=== PATIENT | female | born 1960 | race Caucasian/White ===

== ENCOUNTER 2019-05-09 07:20 | Day surgery (SDC) | payer BC ==
[2019-05-09] MEDS ORDERED: Midazolam 1 MG/ML 2 ML SDV ONE (07:42)
[2019-05-09] MEDS ORDERED: Propofol 200 MG/20 ML SDV ONE (07:42)
[2019-05-09] MEDS ORDERED: fentaNYL 100 MCG/2 ML SDV ONE (07:42)
[2019-05-09] MEDS ORDERED: Sodium Chloride 0.9% 1,000 ML IV SCH (07:45)
--- NOTE | 2019-05-09 13:57 | OR ---
DATE OF PROCEDURE: 05/09/2019 SURGEON: Quique Mehta MD PROCEDURE: Colonoscopy. FINDINGS: Normal colonoscopy. COMPLICATIONS: None. CROSSTIE INSPECTOR: None. ANESTHESIA: MAC. PREOPERATIVE DIAGNOSIS: Screening colonoscopy. POSTOPERATIVE DIAGNOSIS: Screening colonoscopy. RISKS: Risks, benefits, alternatives, and limitations including, but not limited to infection, bleeding, and perforation were explained to the patient, who wished to proceed. PROCEDURE IN DETAIL: The patient was placed in left lateral decubitus position. Digital rectal exam was performed without any abnormality. Scope was introduced and advanced atraumatically to the ileocecal valve. Photo was taken. Scope was brought back through the ascending, transverse, descending colon, and retroflexed. No evidence of old or new blood. No masses. No polyps. No abnormalities on retroflexion. The patient tolerated the procedure well. Quique Mehta MD /[id number]
== END 2019-05-09 09:56 | disposition home or self-care (01) ==
LOC: JP.SDS 07:20
PROVIDERS: ATTEND Surgery
DX: Z12.11 Encounter for screening for malignant neoplasm of colon (principal); K21.9 Gastro-esophageal reflux disease without esophagitis
CPT/HCPCS: 45378; J2250; J2704; J3010; J7030